=== PATIENT | male | born 1970 | race African-American/Black ===

== ENCOUNTER 2018-06-13 17:33 | Emergency (ER) | payer OTHER ==
[~2018-06-13] VITALS: Ht 190.5 cm; Wt 117.9 kg
[~2018-06-13 17:33] MED LIST: LORTAB 5 MG/5001 TA1 PO; NOHOMEMEDICATIONS; PERCOCET 5-3251 EACH PO
[2018-06-13] MEDS ORDERED: IBUPROFEN 400400 M2 PO (19:06)
[2018-06-13 19:43] VITALS: BP 137/91
== END 2018-06-13 19:43 | disposition home or self-care (01) ==
LOC: ER 17:33
DX: S30.0XXA Contusion of lower back and pelvis, initial encounter (principal); W10.8XXA Fall (on) (from) other stairs and steps, initial encounter; Y93.89 Activity, other specified; Y92.89 Other specified places as the place of occurrence of the external cause; Y99.8 Other external cause status

== ENCOUNTER 2020-02-21 08:20 | Emergency (ER) | payer OTHER ==
[~2020-02-21] VITALS: Ht 190.5 cm; Wt 117.0 kg
[~2020-02-21 08:20] MED LIST changes: +IBUPROFEN 400400 M2 PO
[2020-02-21 09:04] LABS: ABSOLUTE NEUTROPHILS 6.1 thou/uL (1.4-8.2); BASOPHILS 0.7 % (0.0-2.0); EOSINOPHILS 1.2 % (0.0-3.0); HEMATOCRIT 44.1 % (42.0-52.0); HEMOGLOBIN 14.7 gm/dL (14.0-18.0); MCH 29.2 pg (26.0-34.0); MCHC 33.4 g/dL (28.0-37.0); MCV 87.6 fL (80.0-100.0); MONOCYTES 5.9 % (1.0-8.0); PLATELET COUNT 224 thou/uL (150-400); POLYS 72.2 % (36.0-66.0); RBC 5.03 mil/uL (4.50-6.00); RDW 13.3 % (10.5-14.5); WBC 8.4 thou/uL (4.0-11.0)
[2020-02-21 09:08] LABS: ANION GAP 10 mmol/L (7-16); BUN 17 mg/dL (7-18); CALCIUM 9.5 mg/dL (8.5-10.1); CHLORIDE 102 mmol/L (98-107); CO2 28 mmol/L (21-32); CREATININE 1.1 mg/dL (0.7-1.3); GLUCOSE 96 mg/dL (74-106); SODIUM 140 mmol/L (136-145)
[2020-02-21 09:17] LABS: ALBUMIN 4.2 g/dL (3.4-5.0); SGOT 38 U/L (15-37); SGPT 49 U/L (30-65); TOTAL BILIRUBIN 0.6 mg/dL (0.2-1.0); TOTAL PROTEIN 7.8 g/dL (6.4-8.2); TROPONIN-I <0.06 ng/mL (<0.06)
[2020-02-21] MEDS ORDERED: NORVASC 2.5 MG2.5 M1 PO (10:18)
[2020-02-21 10:21] VITALS: BP 156/100
--- NOTE | 2020-02-21 10:50 | EKG ---
[facility] [place] [address] ELECTROCARDIOGRAM REPORT Name: DALI DUBONSHREYA EUGENE Room [facility]: [id number] Admission: 02/21/20 Attend Phys: Discharge: 02/21/20 Date of : 74 Report #: [id number] THIS REPORT FOR: cc: CANDI Simms family physician/PCP CANDI Simms family physician/PCP Ben Nj MD [facility] THIS REPORT FOR: //name// [facility] ED Test Date: 2020-02-21 Test Time: 10:09:54 Pat Name: ANAND DUBON Department: Room: Gender: [employer] Load[employer] Operator: [facility] : 1970 Requested By: Hunter Aguirre Order Number: [id number] MD: Ben Nj Measurements Intervals [place] Rate: 63 P: 50 [place]: 210 QRS: -34 QRSD: 102 T: 16 QT: 394 QTc: 404 Interpretive Statements Sinus rhythm Probable left atrial enlargement RSR' in V1 or V2, probably normal variant Left ventricular hypertrophy Compared to ECG 10/13/2008 11:18:30 RSR' in V1 or V2 now present Left ventricular hypertrophy now present Intraventricular conduction delay no longer present Electronically Signed On 02-21-2020 10:50:22 CDT by Ben Nj [email or web address] <ELECTRONICALLY SIGNED> By: Ben Nj MD, FACC 02/21/20 1050 08 100 Ben Nj MD, FAC /EPI
== END 2020-02-21 10:21 | disposition home or self-care (01) ==
LOC: ER 08:20
PROVIDERS: Emergency Medicine
DX: I10 Essential (primary) hypertension (principal)